=== PATIENT | female | born 1945 | race Caucasian/White ===

== ENCOUNTER 2016-11-19 05:27 | Day surgery (SDC) | payer OTHER ==
[~2016-11-19] VITALS: Ht 152.4 cm; Wt 70.0 kg
[~2016-11-19 05:27] MED LIST: CHOL200016 PO; FentaNYL CITRATE-PF 100 MCG/2 ML VIAL IVP ONE; LIDOCAINE HCL/PF 2% 5 ML VIAL IM ONE; METF850T2 PO; MIDAZOLAM HCL 2 MG/2 ML VIAL IVP ONE; PRAV20TA4 PO; PROPOFOL 1% 20 ML VIAL IVP ONE; SUCCINYLCHOLINE CHLORIDE 20 MG/ML 10 ML VIAL IVP ONE; VALS1TAB73 PO
[2016-11-19] MEDS ORDERED: CeFAZolin 2 GM/DEXTROSE 50 ML IV ONE ×2 (05:47→07:30)
[2016-11-19] MEDS ORDERED: RINGERS SOLUTION,LACTATED 1,000 ML IV ONE ×2 (05:47→06:00)
[2016-11-19 06:38] LABS: BASOPHILS % (AUTO) 0.1 % (0.0-2.0); EOSINOPHILS # (AUTO) 0.16 K/uL (0.00-0.70); EOSINOPHILS % (AUTO) 1.99 % (1.0-6.0); HEMATOCRIT 37.8 % (36-46); HEMOGLOBIN 12.6 g/dL (12.0-16.0); LYMPHOCYTES # (AUTO) 1.4 K/uL (1.0-4.8); LYMPHOCYTES % (AUTO) 17.4 % (22.0-44.0); MEAN CORPUSCULAR HEMOGLOBIN 31.7 pg (26.0-34.0); MEAN CORPUSCULAR HGB CONC 33.4 G/dL (31.0-37.0); MEAN CORPUSCULAR VOLUME 95 fL (80-100); MONOCYTES % (AUTO) 12.2 % (2.0-9.0); NEUTROPHILS # (AUTO) 5.5 K/uL (1.8-7.7); NEUTROPHILS % (AUTO) 68.4 % (40.0-70.0); PLATELET COUNT (AUTO) 301 K/uL (150-450); RED BLOOD CELL COUNT(AUTO) 3.98 MIL/uL (4.00-5.20); RED CELL DISTRIBUTION WIDTH 13.8 % (11.5-14.5)
[2016-11-19 06:50] LABS: INR 0.9 (0.9-1.1); PROTHROMBIN TIME 9.8 SEC (9.4-11.6)
[2016-11-19] MEDS ORDERED: GUM MASTIC/STORAX/MSAL/ALCOHOL LIQUID 0.67 ML VIAL TP ONE (06:51)
[2016-11-19] MEDS ORDERED: LIDOCAINE HCL 2%/EPI 1:200,000/PF 10 ML VIAL ONE ×2 (06:51)
[2016-11-19] MEDS ORDERED: SODIUM CHLORIDE 0.9% 50 ML ONE (06:52)
[2016-11-19] MEDS ORDERED: BUPIVACAINE HCL/PF 0.5% 30 ML VIAL ONE (06:52)
[2016-11-19] MEDS ORDERED: HEPARIN SODIUM 1000 UNITS/NS 500 ML ONE (06:52)
[2016-11-19] MEDS ORDERED: IOHEXOL 240 MG/ML 20 ML VIAL ONE ×3 (06:53→09:14)
[2016-11-19 07:04] LABS: CALCIUM, TOTAL 8.6 mg/dL (8.8-10.5); CREATININE 0.94 mg/dL (0.60-1.30); POTASSIUM 4.1 mmol/L (3.5-5.1)
[2016-11-19 07:38] LABS: ALBUMIN 3.2 g/dL (3.4-5.0); BILIRUBIN,TOTAL 0.3 mg/dL (0.1-1.0); TOTAL PROTEIN, SERUM 7.3 g/dL (6.4-8.2)
[2016-11-19] MEDS ORDERED: FentaNYL CITRATE-PF 100 MCG/2 ML VIAL IVP PRN (09:30)
[2016-11-19] MEDS ORDERED: MEPERIDINE-PF 25 MG/ML SYRINGE IVP PRN (09:30)
[2016-11-19] MEDS ORDERED: HYDROmorphone 2 MG/ML SYRINGE IVP PRN (09:30)
[2016-11-19] MEDS ORDERED: ACETAMINOPHEN 500 MG TABLET PO PRN (10:00)
[2016-11-19] MEDS ORDERED: OXYGEN THERAPY IH SCH (20:00)
== END 2016-11-19 12:05 | disposition home or self-care (01) ==
LOC: SURGERY 05:27
PROVIDERS: ATTEND Surgery
DX: C50.911 Malignant neoplasm of unspecified site of right female breast (principal); E11.9 Type 2 diabetes mellitus without complications; I10 Essential (primary) hypertension; E78.00 Pure hypercholesterolemia, unspecified; M54.30 Sciatica, unspecified side; M54.9 Dorsalgia, unspecified; E66.9 Obesity, unspecified; Z90.49 Acquired absence of other specified parts of digestive tract; Z79.01 Long term (current) use of anticoagulants; Z98.890 Other specified postprocedural states; Z92.21 Personal history of antineoplastic chemotherapy
CPT/HCPCS: C1788 ×23; 36561; 77001; 93005; A4301; J0330; J0690; J1644; J2250; J2704; J3010; J3490; J7050; J7120; Q9966